=== PATIENT | male | born 1990 | race Hispanic/Latino ===

== ENCOUNTER 2018-06-19 08:44 | Emergency (ER) | payer OTHER, BC ==
[~2018-06-19] VITALS: Ht 170.2 cm; Wt 113.4 kg
[2018-06-19] MEDS ORDERED: CYCLOBENZAPRINE5 MG PO (09:10)
[2018-06-19] MEDS ORDERED: MELOXICAM7.5 MG PO (09:10)
== END 2018-06-19 11:12 | disposition home or self-care (01) ==
LOC: ED 08:44
DX: S46.811A Strain of other muscles, fascia and tendons at shoulder and upper arm level, right arm, initial encounter (principal); S20.311A Abrasion of right front wall of thorax, initial encounter; X50.9XXA Other and unspecified overexertion or strenuous movements or postures, initial encounter; Y92.411 Interstate highway as the place of occurrence of the external cause
CPT/HCPCS: 71046; 99283-25

== ENCOUNTER 2018-06-22 07:23 | Emergency (ER) | payer OTHER, BC ==
[~2018-06-22] VITALS: Ht 170.2 cm; Wt 113.4 kg
[~2018-06-22 07:23] MED LIST: CYCLOBENZAPRINE5 MG PO; MELOXICAM7.5 MG PO
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
== END 2018-06-22 07:37 | disposition home or self-care (01) ==
LOC: ED 07:23
DX: Z04.3 Encounter for examination and observation following other accident (principal)

== ENCOUNTER 2019-07-13 04:56 | Observation (INO) | payer BC ==
[~2019-07-13] VITALS: Ht 167.6 cm; Wt 118.4 kg
--- NOTE | 2019-07-14 07:36 | EKG ---
[facility] [address] [facility] [place], [place] [address] Signed Normal sinus rhythm Possible Inferior infarct , age undetermined Abnormal ECG No previous ECGs available Confirmed by CHICHO THOMAS MD ([id number]) on 07/14/2019 7:36:23 AM Electronically Signed By: CHICHO THOMAS MD 07/14/19 0736 PATIENT NAME: HILLARY DUQUE Electrocardiogram DATE OF : 86 PHYSICIAN: CHICHO THOMAS MD REPORT #: [id number] REPORT IS CONFIDENTIAL AND NOT TO BE RELEASED WITHOUT AUTHORIZATION
[2019-07-15] MEDS ORDERED: TYLENOL EXTRA500 MG PO (14:12)
[2019-07-15] MEDS ORDERED: IBUPROFEN600 MG PO (14:12)
--- NOTE | 2019-07-16 09:22 | HP ---
[facility] [address] [place], [place] [address] Signed ADMISSION DATE: 07/13/2019 REASON FOR ADMISSION: Acute calculous cholecystitis. 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 He is and has one 6-year-old child. He presented to the emergency room at approximately 5:20 this morning and was evaluated by Dr. Barbour with marked tenderness in the right upper abdomen, which began last night. He has had some associated nausea, but no vomiting. His evaluation included a gallbladder ultrasound, which showed a thickened gallbladder wall and several gallstones. Notably, he has no elevated white count on his presentation (7.8) and liver enzymes are normal except for AST and ALT (206 and 319) respectively. Alkaline phosphatase is normal at 78 and bilirubin is normal at 0.7. He has been admitted and given intravenous fluids, antibiotics, and so forth in coordination with emergency room physician. His past medical history is rather unremarkable. He denies any prior operations. He has no chronic medical problems. He has had abdominal pain issues in the past, which are generally recovered within a day or so. Whether or not there is anything of this sort is unknown. He has no known drug allergies and takes no medications at home. He occasionally uses alcohol. Does not use drugs. Has never smoked. REVIEW OF SYSTEMS: He denies any shortness of breath or chest pain. He has had no dysphagia, dysuria, hematemesis or blood per rectum. His pain is primarily in the right upper quadrant. PHYSICAL EXAMINATION: GENERAL: This is a morbidly obese, 42.1 kg/m2, man, who appears uncomfortable. HEENT: Mucous membranes are dry. NECK: Trachea is midline. CHEST: Clear. HEART: Regular without murmur. ABDOMEN: Obese and there is marked tenderness in the right upper quadrant. EXTREMITIES: Show no clubbing, cyanosis, or edema. DIAGNOSTIC DATA: Electronically Signed By: DEISY VILLASEÑOR MD 07/16/19 0922 PATIENT NAME: HILLARY DUQUE HISTORY AND PHYSICAL DATE OF : [birth year] REPORT #: [id number] PHYSICIAN: DEISY VILLASEÑOR MD PCP: NO PRIMARY CARE PHYSICIAN REPORT IS CONFIDENTIAL AND NOT TO BE RELEASED WITHOUT AUTHORIZATION [facility] [address] [place], [place] [address] Signed Lab studies as noted, showed a white count of 7.8, hematocrit of 46.0, platelets 204,000. Chem profile normal except for liver enzymes as described. Urinalysis is normal. Specific gravity 1.031 consistent with dehydration. I reviewed his imaging studies and the reports as well. ASSESSMENT: The patient has acute calculous cholecystitis. The gallbladder wall is thickened. He has marked tenderness. He needs additional fluids, continued antibiotic administration and parenteral pain medication in a higher degree. Sequential compression device stockings were used as well. I discussed the issue of his problem and recommendation of treatment to include cholecystectomy preferred by laparoscopic approach. He may need an open approach, particularly given his obesity and the possibility of more advanced usually be the case. Additionally, the possibility of common duct exploration was reviewed. For now, preoperative preparation is of paramount importance. We will give him an instruction booklet regarding the gallbladder as well. Deisy Villaseñor MD JM/MODL /[id number] cc: Teresa Barbour MD Copies: TERESA BARBUOR MD ~ Electronically Signed By: DEISY VILLASEÑOR MD 07/16/19 0922 PATIENT NAME: HILLARY DUQUE HISTORY AND PHYSICAL DATE OF : [birth year] REPORT #: [id number] PHYSICIAN: DEISY VILLASEÑOR MD PCP: NO PRIMARY CARE PHYSICIAN REPORT IS CONFIDENTIAL AND NOT TO BE RELEASED WITHOUT AUTHORIZATION
--- NOTE | 2019-07-16 09:22 | OR ---
[facility] [address] [place], [place] [address] Signed DATE OF OPERATION: 07/14/2019 SURGEON: Deisy Villaseñor MD PREOPERATIVE DIAGNOSES: 1. Acute calculous cholecystitis. 2. Obesity. POSTOPERATIVE DIAGNOSIS: Gangrenous cholecystitis. PROCEDURES: 1. Laparoscopy with conversion to open cholecystectomy. 2. Intraoperative cholangiogram. 3. Flexible choledochoscopy. ANESTHESIA: General endotracheal; Jah Bird, MEDICAL BILL PROCESSOR and local 10 mL of 0.25% Marcaine with epinephrine. INDICATION: This 28-year-old man presented to the emergency room yesterday morning approximately 5:30 with rather significant right upper quadrant tenderness. A gallbladder ultrasound was performed, which showed a thickened wall and multiple gallstones. His white count was not elevated (7.8). Liver enzymes abnormal for an AST and ALT of 206 and 319, alkaline phosphatase was normal at 78, and bilirubin normal at 0.7. He was admitted and given intravenous fluids, antibiotics, and so forth. He had persistent marked tenderness in the right upper abdomen. He is admitted at this time to undergo cholecystectomy for acute cholecystitis. He understands as does his family, the risk of bleeding, infection, need for open procedure including possible open common duct exploration and other unforeseen complications and wishes to proceed. FINDINGS: On laparoscopy, the gallbladder appeared gangrenous. Decompression of the gallbladder was not forthcoming as the gallbladder was so completely full of stones. Open cholecystectomy was required and completely gangrenous. Cholecystitis was noted without perforation. A multitude of yellow round gallstones was noted within the gallbladder. Mucosa was completely necrotic. The gallbladder was removed with great precision and care. The cystic duct itself was somewhat dilated. Cholangiogram showed a free common bile duct and hepatic duct with good flow into the duodenum. There was a filling defect Electronically Signed By: DEISY VILLASEÑOR MD 07/16/19 0922 PATIENT NAME: HILLARY DUQUE OPERATIVE REPORT DATE OF : [birth year] REPORT #: [id number] PHYSICIAN: DEISY VILLASEÑOR MD PCP: NO PRIMARY CARE PHYSICIAN REPORT IS CONFIDENTIAL AND NOT TO BE RELEASED WITHOUT AUTHORIZATION [facility] [address] [place], [place] [address] Signed at the distal portion of the cystic duct. A stone was extracted from that area. Flexible choledochoscopy was undertaken, but the scope was such that it could not pass into the common duct itself, but the visualized cystic duct was completely clear after extraction of the stone. The operation was prolonged, complicated, and difficult lasting from 9:00 a.m. to 12:00 noon. DESCRIPTION OF PROCEDURE: The patient was brought to the operating room, given a general endotracheal anesthetic. 2 g of Ancef were administered intraoperatively. Sequential compression device stockings were used. Heparin subcutaneously administered and a Lawton catheter was placed, anticipating possible difficult operation given his clinical symptoms. The abdomen was prepared with a chlorhexidine solution and draped sterilely. An infraumbilical incision was made and using an open Bhavna cannula technique, pneumoperitoneum was achieved to a level of 14 mmHg of carbon dioxide gas. Intraabdominal inspection showed no sign of ascites or carcinomatosis, but an obviously gangrenous gallbladder. Photographs were taken. Three additional trocars were placed in usual configuration in the subxiphoid, right midclavicular, and right anterior axillary line. Attempts to grasp the gallbladder were completely unsuccessful as the gallbladder was tensed and distended. A decompressive needle trocar was used to decompress the gallbladder, only scant bile was withdrawn clearly indicating the gallbladder with full of stones. Additional attempts to grasp the gallbladder completely impossible. On that basis, conversion to open operation was required. Additionally, the gallbladder was quite markedly distended and it was highly probable that a laparoscopic approach would be impossible even if it could be grasped and elevated. The trocars removed under direct visualization showing no sign of bleeding. The infraumbilical fascial incision was reapproximated with interrupted 0 Vicryl suture. The right subcostal incision was made extending the epigastric port to it and dissection was carried to subcutaneous tissue and the anterior rectus sheath with electrocautery. The right rectus abdominis muscle was divided and the posterior sheath in its attended peritoneum incised. The abdomen was then entered. Bookwalter retractor with a small ring was used to provide good exposure. Impressive indeed was the distention of the gallbladder completely and totally packed with stones, dilated down to the infundibulum indeed to the cystic duct itself. Attempts of decompression were once again undertaken as a pursestring suture of silk was used at the apex of the gallbladder, but again there was essentially no bile to do any decompression. The ring clamp was used to grasp the gallbladder. The very thickened peritoneum was incised with electrocautery with meticulous care using a tonsil clamp Electronically Signed By: DEISY VILLASEÑOR MD 07/16/19 0922 PATIENT NAME: HILLARY DUQUE OPERATIVE REPORT DATE OF : [birth year] REPORT #: [id number] PHYSICIAN: DEISY VILLASEÑOR MD PCP: NO PRIMARY CARE PHYSICIAN REPORT IS CONFIDENTIAL AND NOT TO BE RELEASED WITHOUT AUTHORIZATION [address] [place] [address] Signed technique. The back wall and essentially all the gallbladder was completely gangrenous soft and imminently able to rupture at any time. The avascular plane between the liver and the gallbladder was obtained and with complete care and extreme caution, dissection was undertaken without complication down to the infundibulum. Additional dissection was undertaken in this area showing a very dilated infundibulum and ultimately a dilated cystic duct. Cystic arterial branches were clipped as necessary ultimately identifying well the cystic duct, which was relatively enlarged. Visualized also was a common bile duct. Marked edema and inflammation of surrounding tissues were noted as would be expected. The right angle clamp was applied to the gallbladder cystic duct junction and the cystic duct transversely incised. Clear bile was noted from the cystic duct. Using an Estrella type cholangiocatheter with hemoclips, intraoperative cholangiography was undertaken showing free flow of contrast into the biliary tree with prompt emptying into the duodenum. No sign of dilation of the common bile duct or common hepatic duct. There was redundancy in the region of the insertion of the catheter indicating possible residual or dilated cystic duct. A small defect was noted there as well though the common duct appeared to be free of any filling defect or dilation. The Bookwalter retractor system was set up once again and further dissection of the cystic duct undertaken fully to the gallbladder as to the cystic duct common duct junction. Retrograde milking of the cystic duct with a right angle clamp allowed delivery of a small, less than 1 cm stone. Egress of clear bile was again more notable and more copious. It was deemed advisable to check the common duct if possible. Transcystic duct flexible choledochoscopy was undertaken. The distal junction between the cystic duct in the common duct, unable to accommodate even the small ureteral-nephroscope. Mindful that a common duct choledochotomy to more fully assess the common bile duct would likely necessitate a T-tube. Review of the findings of the cholangiogram confirmed, there was no dilated common hepatic duct or common bile duct for filling defect, and therefore, I felt it safe to simply occlude the cystic duct and perform no common bile duct exploration proper. The somewhat dilated cystic duct was too large to accommodate the large clips and on that basis, two separate interrupted 2-0 silk sutures were used to secure the cystic duct. Irrigation was undertaken in subhepatic space as there was no spillage of stones or debris. A quick clean-up was noted. Through right-sided trocar site from prior intervention, a 7 mm flat Iker drain was cut to the appropriate length and secured in the subhepatic space. This was secured to the skin with nylon suture. Irrigation was undertaken and there was found to be no bile leak or bleeding. Posterior sheath and its attended peritoneum were reapproximated with running #1 PDS Electronically Signed By: DEISY VILLASEÑOR MD 07/16/19 0922 PATIENT NAME: HILLARY DUQUE OPERATIVE REPORT DATE OF : [birth year] REPORT #: [id number] PHYSICIAN: DEISY VILLASEÑOR MD PCP: NO PRIMARY CARE PHYSICIAN REPORT IS CONFIDENTIAL AND NOT TO BE RELEASED WITHOUT AUTHORIZATION [address] [address] Signed suture. Muscular layer was irrigated and the anterior rectus sheath similarly reapproximated. Subcutaneous tissue was irrigated and the skin closed with running subcuticular 3-0 Vicryl. The skin incisions at the umbilicus and right abdominal wall were additionally secured with 3-0 Vicryl. 10 mL of 0.25% Marcaine with epinephrine was injected in the subcostal incision and the infraumbilical incision. The patient was ultimately extubated and transported to recovery room in good condition having suffered no complications. Sponge, needle, and instrument counts were reported as correct x3. The operation was prolonged, complicated, and difficult on the basis of gangrenous cholecystitis, obesity, and so forth, but was accomplished safely. Deisy Villaseñor MD JM/MODL /[id number] cc: Teresa Barbour MD Copies: TERESA BARBOUR MD ~ Electronically Signed By: DEISY VILLASEÑOR MD 07/16/19 0922 PATIENT NAME: HILLARY DUQUE OPERATIVE REPORT DATE OF : [birth year] REPORT #: [id number] PHYSICIAN: DEISY VILLASEÑOR MD PCP: NO PRIMARY CARE PHYSICIAN REPORT IS CONFIDENTIAL AND NOT TO BE RELEASED WITHOUT AUTHORIZATION
--- NOTE | 2019-07-16 09:22 | DS ---
[facility] [address] [place], [place] [address] Signed ADMISSION DATE: 07/13/2019 DISCHARGE DATE: 07/15/2019 HISTORY OF PRESENT ILLNESS: This obese 28-year-old man lives in [place] and is , has a 6-year-old child. He presented to the emergency room at approximately 5:20 in the morning on July 12 with severe right subcostal pain. He had associated nausea but no vomiting. Evaluation included a gallbladder ultrasound, which showed a thickened gallbladder wall and several gallstones. He has no elevated white count (white count 7.8) with liver enzymes normal except for AST and ALT elevated at 206 and 319 respectively. Alkaline phosphatase and bilirubin were normal at 78 and 0.7. He is admitted for further evaluation and care for acute calculous cholecystitis. PAST MEDICAL HISTORY: Unremarkable. No prior surgery is noted. PERTINENT PHYSICAL EXAMINATION: GENERAL: This is a morbidly obese 42.1 kg/m2 man who appears uncomfortable. HEENT: Mucous membranes are dry. NECK: Trachea midline. CHEST: Clear. HEART: Regular without murmur. ABDOMEN: Obese with marked tenderness in right upper abdomen. EXTREMITIES: Show no clubbing, cyanosis, or edema. LABORATORY DATA: White count 7.8, hematocrit 46, platelets 204,000. Liver enzymes as normal as noted. HOSPITAL COURSE: He was admitted, given vigorous fluid resuscitation, IV antibiotic Ancef. A plan was made for operation that day, however, he still needed additional fluids and on that basis, underwent operation on Sunday, July 14, 2019. A laparoscopic approach had been anticipated. Evaluation of the gallbladder showed it to be gangrenous. Due to his obesity and tense nature of his gallbladder, conversion to open operation was required. He was found to have completely gangrenous cholecystitis with a gallbladder, so completely packed full of stones that decompression could not even be undertaken. The operation was rather prolonged and complicated but accomplished safely without spillage of stones or gallbladder contents. Cholangiogram showed no sign of filling defect of the common duct, was a small filling defect of the distal cystic duct and that stone was removed. Clear bile was noted from the biliary tree once completed. Flexible choledochoscopy with a nephroscope was undertaken clearing the duct remnant. There was Electronically Signed By: DEISY VILLASEÑOR MD 07/16/19 0922 PATIENT NAME: HILLARY DUQUE DISCHARGE SUMMARY DATE OF : 86 REPORT #: [id number] PHYSICIAN: DEISY VILLASEÑOR MD PCP: NO PRIMARY CARE PHYSICIAN REPORT IS CONFIDENTIAL AND NOT TO BE RELEASED WITHOUT AUTHORIZATION [facility] [address] [place], [place] [address] Signed no interrogation of common duct itself with the scope, however. A drain was placed and he had a remarkable improvement. By time of discharge the following day, he was ambulating well, tolerating a regular diet, his incisional pain managed primarily by Motrin and Tylenol and no opiates. The drain will be removed before discharge. DISCHARGE MEDICATIONS: 1. Motrin 600 mg p.o. q.6 hours p.r.n. pain, #60 refill one. 2. Tylenol Extra Strength 500 mg two tablets p.o. q.6 hours as needed for pain, #60 refill one. FOLLOWUP PLAN: He is return to see me in approximately a month. He is recommended to avoid lifting more than 20 pounds for the next 4 weeks. 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 He will be a best manager of training of what he can do within those restrictions. DISCHARGE DIAGNOSES: 1. Acute gangrenous cholecystitis with multiple gallstones, status post laparoscopy with conversion to open cholecystectomy, prolonged, complicated and difficult, placement of drain and choledochoscopy. 2. Morbid obesity. MD JESSICA Vines/MODL /[id number] cc: Teresa Barbour MD Copies: TERESA BARBOUR MD ~ Electronically Signed By: DEISY VILLASEÑOR MD 07/16/19 0922 PATIENT NAME: HILLARY DUQUE DISCHARGE SUMMARY DATE OF : [birth year] REPORT #: [id number] PHYSICIAN: DEISY VILLASEÑOR MD PCP: NO PRIMARY CARE PHYSICIAN REPORT IS CONFIDENTIAL AND NOT TO BE RELEASED WITHOUT AUTHORIZATION
--- NOTE | 2019-07-17 12:54 | PATH ---
[facility] [address] [facility] [place], [place] [address] Signed SPECIMEN(S): A GALLBLADDER AND STONES SPECIMEN SOURCE: A. GALLBLADDER AND STONES CLINICAL HISTORY: Acute calculous cholecystitis. FINAL PATHOLOGIC DIAGNOSIS: Gallbladder, cholecystectomy: - Acute cholecystitis with areas of necrosis. - Cholelithiasis. NAL:cml:C2NR MICROSCOPIC EXAMINATION: Histologic sections of all submitted blocks are examined by light microscopy. These findings, together with the gross examination, support the pathologic diagnosis. GROSS DESCRIPTION: The specimen, labeled "OM," and designated on the requisition "gallbladder and stones," is received in formalin and consists of Specimen: Previously opened gallbladder. Dimensions: 12.5 x 5.6 x 2.0 cm. Serosa: Red and diffusely congested. Cystic Duct: Unobstructed, probe patent and inked. Calculi: Multiple orange-brown smooth stones, aggregate measurement 6.5 x 6.0 x 2.8 cm. Mucosa: Green-black and softened. Wall thickness: 0.1-0.7 cm. Lymph node: No pericystic lymph nodes are grossly identified. Additional: None. Screw Machine Tool Setter sections are submitted in cassette (A1). FB (under the direct supervision of a pathologist) The Gross Description was prepared using a voice recognition system. The report was reviewed for accuracy; however, sound-alike word errors, addition and/or deletions may occur. If there is any question about this report, please contact Client Services. PERFORMING LABORATORY: The technical component was performed by [employer], Shawn Chino, PATIENT NAME: HILLRAY DUQUE PATHOLOGY DATE OF : [birth year] REPORT #: [id number] PHYSICIAN: DARON PATHOLOGY PCP: NO PRIMARY CARE PHYSICIAN REPORT IS CONFIDENTIAL AND NOT TO BE RELEASED WITHOUT AUTHORIZATION [facility] [address] [place], [place] [address] [place] [address] (Infertility Medical Assistant: Samantha Mcdonald MD; CLIA# [id number]). Professional interpretation was performed by [facility], [address] [address] (CLIA# [id number]). Diagnostician: Alysha Dunn MD Pathologist Electronically Signed 07/17/2019 Copies: ~ PATIENT NAME: HILLARY DUQUE PATHOLOGY DATE OF : [birth year] REPORT #: [id number] PHYSICIAN: DARON STILES PCP: NO PRIMARY CARE PHYSICIAN REPORT IS CONFIDENTIAL AND NOT TO BE RELEASED WITHOUT AUTHORIZATION
== END 2019-07-15 15:00 | disposition home or self-care (01) ==
LOC: ED 04:56 → CCU 04:57 → MS 17:40
PROVIDERS: ADMIT Surgery
PROC: 0FJB4ZZ Inspection of Hepatobiliary Duct, Percutaneous Endoscopic Approach (ICD-10-PCS; 2019-07-14)
PROC: BF13YZZ Fluoroscopy of Gallbladder and Bile Ducts using Other Contrast (ICD-10-PCS; 2019-07-14)
PROC: 0FJB4ZZ Inspection of Hepatobiliary Duct, Percutaneous Endoscopic Approach (ICD-10-PCS; 2019-07-14)
PROC: 0FJ44ZZ Inspection of Gallbladder, Percutaneous Endoscopic Approach (ICD-10-PCS; principal; 2019-07-14 09:00)
PROC: 0FT40ZZ Resection of Gallbladder, Open Approach (ICD-10-PCS; 2019-07-14 09:00)
DX: K80.00 Calculus of gallbladder with acute cholecystitis without obstruction (principal); E66.9 Obesity, unspecified; F32.9 Major depressive disorder, single episode, unspecified; R73.03 Prediabetes; Z68.41 Body mass index [BMI] 40.0-44.9, adult
CPT/HCPCS: 00790; 36415; 74300; 76705; 80053; 81001; 82247; 82465; 83615; 83690; 84100; 84478; 84484; 84550; 85025; 93005; 93010; 96372; 96374; 96375; 96376; 99285-25; A9270; G0378; J0131; J0690; J1100; J1170; J1644; J1885; J2001; J2250; J2270; J2405; J2704; J3010; J7030; J7121; Q9967

== ENCOUNTER 2022-06-10 05:17 | Emergency (ER) | payer BC ==
[~2022-06-10] VITALS: Ht 167.6 cm; Wt 117.9 kg
[~2022-06-10 05:17] MED LIST changes: +IBUPROFEN600 MG PO; +TYLENOL EXTRA500 MG PO
[2022-06-10] MEDS ORDERED: ONDANSETRON ODT8 MG PO (06:31)
[2022-06-10] MEDS ORDERED: PERCOCET 5-3251 EACH PO (06:31)
[2022-06-10] MEDS ORDERED: FLOMAX0.4 MG PO (06:31)
[2022-06-10] MEDS ORDERED: KETOROLAC TROME10 MG PO (06:31)
== END 2022-06-10 06:50 | disposition home or self-care (01) ==
LOC: ED 05:17
DX: N13.2 Hydronephrosis with renal and ureteral calculous obstruction (principal); I10 Essential (primary) hypertension; E11.9 Type 2 diabetes mellitus without complications
CPT/HCPCS: 36415; 74176; 80053; 85025; 96374; 96375; 99284-25; A9270; J1885; J2405; J7121

== ENCOUNTER 2023-06-25 16:48 | Emergency (ER) | payer BC ==
[~2023-06-25] VITALS: Ht 167.6 cm; Wt 121.6 kg
[~2023-06-25 16:48] MED LIST changes: +FLOMAX0.4 MG PO; +KETOROLAC TROME10 MG PO; +ONDANSETRON ODT8 MG PO; +PERCOCET 5-3251 EACH PO
[2023-06-25] MEDS ORDERED: ondansetron HCL 4 MG/2 ML VIAL IV PRN (17:30)
[2023-06-25] MEDS ORDERED: KETOROLAC TROMETHAMINE 15 MG/ML VIAL IV ONE (17:30)
[2023-06-25 17:44] LABS: BILIRUBIN, URINE NEGATIVE (negative); BLOOD/HGB, URINE LARGE (Negative); KETONE, URINE NEGATIVE (Negative); LEUK ESTERASE, URINE NEGATIVE (negative); NITRITE, URINE NEGATIVE (negative)
[2023-06-25] MEDS ORDERED: KETOROLAC TROMETHAMINE 30 MG/ML VIAL IV ONE (17:45)
[2023-06-25] MEDS ORDERED: HYDROmorphone HCL 1 MG/ML SYR IV ONE (17:45)
[2023-06-25 17:46] LABS: BASOPHILS 0.3 % (0-2); EOSINOPHILS 0.1 % (0-6); HEMATOCRIT 42.3 % (35.0-50.0); HEMOGLOBIN 14.5 g/dL (12.0-18.0); LYMPHOCYTES 10.3 % (24-44); MCH 29.5 (27-36); MCHC 34.3 g/dl (30-36); NEUTROPHILS 84.3 % (39-80); PLATELET COUNT 224 K/uL (140-440); RBC 4.91 M/ul (4.3-5.7); RDW 13.8 (10.5-15.0)
[2023-06-25 17:52] LABS: BACTERIA, URINE RARE /hpf (negative); EPITHELIAL CELLS, URINE SQUAMOUS 1+ /lpf (0-1+); RED BLOOD CELLS, URINE 21-40 /hpf (0-5); REFLEX CULTURE, URINE Yes (No)
[2023-06-25 18:09] LABS: ALBUMIN 3.9 g/dL (3.4-5.0); ALBUMIN/GLOBULIN RATIO 0.95 (1.1-2.4); BILIRUBIN, TOTAL 0.5 ng/dL (0.2-1.0); BUN/CREATININE RATIO 8.62 (6.0-28.6); CALCIUM 8.5 mg/dL (8.5-10.1); CREATININE, SERUM 1.16 mg/dL (0.70-1.30)
[2023-06-25] MEDS ORDERED: HYDROCODON-ACE1 EA10 PO (18:40)
[2023-06-25] MEDS ORDERED: KETOROLAC TROME10 MG PO (18:40)
[2023-06-25 18:58] VITALS: BP 139/83
== END 2023-06-25 18:58 | disposition home or self-care (01) ==
LOC: ED 16:48
PROVIDERS: Emergency Medicine
DX: N23 Unspecified renal colic (principal); I10 Essential (primary) hypertension; E11.9 Type 2 diabetes mellitus without complications; Z87.442 Personal history of urinary calculi
CPT/HCPCS: 36415; 80053; 81001; 85025; 87088; 96374; 96375; 99284-25; J1885; J2405